=== PATIENT | male | born 1995 | race Caucasian/White ===

== ENCOUNTER 2021-07-21 00:30 | Emergency (ER) | payer BC, SELFPAY ==
--- NOTE | ~2021-07-21 | XR_ITS ---
EXAMINATION: XR finger 1st LT min 2V EXAM DATE: 07/21/2021 07:12 INDICATION: Laceration, FB. TECHNIQUE: Left 1st finger frontal, lateral and oblique projections obtained and reviewed. There i s no prior study for comparison. FINDINGS: There are no acute left 1st finger fractures or dislocations identified. There is no subcu taneous gas. The soft tissue is unremarkable. There are no radiopaque foreign bodies. IMPRESSION: 1. Unremarkable XR finger 1st LT min 2V exam. Reviewed, dictated and finalized at location A.
[2021-07-21 00:30] VITALS: BP 136/66; PULSE 74; RESP 20; TEMP 36.4; O2SAT 97
--- NOTE | 2021-07-21 01:00 | ED.WOUNDLAC ---
HPI - Wound/Laceration General Chief Complaint: Wound/Laceration Stated Complaint: Cut Thumb on Left Time Seen by Provider: 07/21/21 00:32 Source: patient, RN notes reviewed and old records reviewed Mode of arrival: ambulatory Limitations: no limitations History of Present Illness Onset (ago): hour(s) (1) Extremity Location: Left: hand Place: outdoors Patient tetanus UTD: Yes Context: accidental Associated symptoms: pain Related Data Home Medications Medication Instructions Recorded Confirmed No Home Medications 07/21/21 07/21/21 Allergies Allergy/AdvReac Type Severity Reaction Status Date / Time No Known Allergies Allergy Verified 07/21/21 00:39 Review of Systems Review of Systems: All systems reviewed & are unremarkable except as noted in HPI and below PMFSH Past Medical History Medical History Thumb laceration Exam Const: General: healthy appearing, no acute distress and alert Orientation/consciousness: patient oriented x3 Limitations: no limitations HENMT: Head: normal to inspection Ears: external ears normal, TM's normal bilaterally and EAC's normal General nose exam: Normal external nose present and Normal nares present Face and sinus: normal facial exam Mouth: Yes moist mucous membranes Eyes: Conjunctivae: conjunctivae normal Pupils: Equal, round and reactive pupils present EOM: EOMs intact bilaterally Neck: Neck: normal visual inspection and no lymphadenopathy Chest: Chest palpation & inspection: normal inspection of the chest Resp: Effort & Inspection: normal respiratory effort Auscultation: clear to auscultation bilaterally Cardio: Rate: regular rate Rhythm: regular rhythm GI: GI Palp: Yes Soft to palpation and No Tenderness to palpation present (GI) Back/Spine/Pelvis: Back: no CVA tenderness Skin: General skin exam: normal color Rashes: no rashes Neuro: General: patient oriented x3, moves all extremities and no meningeal signs Extrem: General: no pedal edema Other: left thumb 1.2 cm linear well approx. laceration Psych: Appearance: grossly normal and well kempt Mental Status: mental status grossly normal Affect: normal affect Attitude: cooperative Thought content: Yes Normal thought content present Course Course Emergency Course: Pt was stable in the ED. Reevaluation(s) Date: 07/21/21 Time: 01:09 Vital Signs Vital signs: Vital Signs Temperature 36.4 C 07/21/21 00:30 Pulse Rate 74 07/21/21 00:30 Respiratory Rate 20 07/21/21 00:30 Blood Pressure 136/66 07/21/21 00:30 Pulse Oximetry 97 07/21/21 00:30 Temperature 36.4 C 07/21/21 00:30 Pulse Rate 74 07/21/21 00:30 Respiratory Rate 20 07/21/21 00:30 Blood Pressure 136/66 07/21/21 00:30 Pulse Oximetry 97 07/21/21 00:30 Procedures Laceration left thumb 1.2 cm laceration: Date: 07/21/21 Time: 01:09 Site: upper extremity and hand Side (If applicable): left Size (cm): 1.2 Description: linear Local Anesthetic: lidocaine 2% Amount of anesthesia used (mL): 1 Pre-repair: wound explored, irrigated and irrigated extensively ====== Skin Level ====== Skin layer closed with: nylon Size (cm): 3-0 Number of sutures: 2 ====== Subcutaneous Layer ====== ====== Muscle Layer ====== ====== Tendon Layer ====== Dressing: well tolerated, hemostasis secured MDM - Wound/Laceration Differential Diagnosis Differential diagnosis: Likely laceration Medical Records Attestation: I reviewed the patient's medical records. Lab Data Attestation: I reviewed the patient's lab results. Imaging Data Radiologist's impression: see the report. Critical Care Time Critical Care Time Critical Care Time: No Total Critical Care Time: 0 Discharge Plan Discharge Clinical Impression: Thumb laceration Instructions: Laceration (ED), Care
[2021-07-21] MEDS: ACETAMINOPHEN 325 MG TABLET 650 MG PO (01:07)
[2021-07-21] MEDS: LIDOCAINE HCL 2% PF INJ 5 ML VIAL (01:07)
[2021-07-21 01:48] VITALS: BP 119/74; PULSE 80; RESP 18; O2SAT 98
== END 2021-07-21 01:50 | disposition home or self-care (01) ==
PROVIDERS: Emergency Provider Emergency Medicine
DX: S61.012A Laceration without foreign body of left thumb without damage to nail, initial encounter (principal); W45.8XXA Other foreign body or object entering through skin, initial encounter
CPT/HCPCS: 12001; 73140; 99283; A9270